=== PATIENT | female | born 1965 | race Caucasian/White ===

== ENCOUNTER → 2017-05-14 | Outpatient (CLI) | payer OTHER ==
--- NOTE | 2017-05-15 12:31 | XR ---
EXAMINATION TYPE: XR thoracic spine complete DATE OF EXAM: 05/14/2017 COMPARISON: NONE HISTORY: Back pain TECHNIQUE: 3 views FINDINGS: There is a midthoracic dextroscoliosis. This measures 20 degrees and is centered at T9. The re is no paraspinal mass. There is hypertrophic spurring of the endplates. I see no compression fract ure. IMPRESSION: Dextroscoliosis. No fracture. Mild spondylotic changes.
--- NOTE | 2017-05-15 12:33 | XR ---
EXAMINATION TYPE: XR lumbosacral spine min 4V DATE OF EXAM: 05/14/2017 COMPARISON: 11/23/2011 HISTORY: Chronic pain TECHNIQUE: 5 views FINDINGS: There is a mild mid lumbar levoscoliosis. Posterior elements are intact. I see no compressi on fracture. There is mild anterior spurring at L2-3. Sacroiliac joints appear normal. IMPRESSION: Minimal levoscoliosis without change compared to old exam. No fracture. No significant di sc space narrowing.
== END | disposition home or self-care (01) ==
LOC: RADXRYALE 11:09
PROVIDERS: ATTEND Family Medicine
DX: M47.814 Spondylosis without myelopathy or radiculopathy, thoracic region (principal); M41.84 Other forms of scoliosis, thoracic region; M41.87 Other forms of scoliosis, lumbosacral region; M54.5 Low back pain
CPT/HCPCS: 72072; 72110

== ENCOUNTER → 2018-02-23 | Outpatient (CLI) | payer OTHER ==
--- NOTE | 2018-02-25 08:22 | MM ---
Reason for exam: screening (asymptomatic). Last mammogram was performed 5 years and 2 months ago. History: Retro-pectoral saline implants in both breasts, 2014. Took hormonal contraceptives for 9 years beginning at age 16. Physical Findings: A clinical breast exam by your physician is recommended on an annual basis and results should be correlated with mammographic findings. MG 3D Screen Mammo Imp/Cad Bilateral CC and MLO view(s) were taken. Prior study comparison: January 03, 2013, bilateral digital screening mammo w/CAD. August 20, 2009, bilateral digital screening mammogram. The breast tissue is heterogeneously dense. This may lower the sensitivity of mammography. No suspicious abnormality. No significant changes when compared with prior studies. ASSESSMENT: Negative, BI-RAD 1 RECOMMENDATION: Routine screening mammogram of both breasts in 1 year.
== END | disposition home or self-care (01) ==
LOC: RADMAMWWP 10:18
PROVIDERS: ATTEND Family Medicine
DX: Z12.31 Encounter for screening mammogram for malignant neoplasm of breast (principal)
CPT/HCPCS: 77063; 77067

== ENCOUNTER → 2018-10-06 | Outpatient (CLI) | payer OTHER ==
--- NOTE | 2018-10-06 15:39 | US ---
EXAMINATION TYPE: US pelvis complete transvag DATE OF EXAM: 10/06/2018 COMPARISON: NONE CLINICAL HISTORY: R102 PELVIC AND PERINEAL PAIN,R1030 LOW ABD PAIN. TECHNIQUE: . Transabdominal sonographic images of the pelvis were acquired. Transvaginal sonographi c images were medically necessary to better assess the following anatomy: Date of LMP: ablation, EXAM MEASUREMENTS: Uterus: 6.3 x 2.4 x 3.6 cm Endometrial Stripe: 0.1 cm Right Ovary: 1.6 x 1.2 x 1.3 cm Left Ovary: 2.0 x 1.4 x 1.5 cm 1. Uterus: small nabothian cyst 0.6 largest cyst, posterior fundal probable fibroid 1.3 x 0.9 x1.9 cm 2. Endometrium: ablation, wnl 3. Right Ovary: wnl 4. Left Ovary: wnl 5. Bilateral Adnexa: wnl 6. Posterior cul-de-sac: wnl Anteverted uterus is present. Tiny nabothian cysts in cervix are seen. Suspect small fundal fibroid a s there is vague isoechoic 1.9 cm lesion in the uterus identified best during transvaginal investigat ion. IMPRESSION: Ablation changes. Nabothian cysts in cervix. Possible small intrauterine fibroids.
== END | disposition home or self-care (01) ==
LOC: RADUSWWP 14:51
PROVIDERS: ATTEND Family Medicine
DX: N88.8 Other specified noninflammatory disorders of cervix uteri (principal)
CPT/HCPCS: 76830; 76856

== ENCOUNTER → 2019-11-15 | Outpatient (CLI) | payer OTHER ==
--- NOTE | 2019-11-15 11:46 | CONS ---
CONSULTATION DATE OF SERVICE: 11/15/2019 This 54-year-old lady has been evaluated in sleep center for loud snoring and multiple awakenings from sleep and restless leg symptoms. HISTORY OF PRESENT ILLNESS/SLEEP-WAKE EVALUATION: Patient's usual sleep schedule from around 8 p.m. until 4 a.m. she does have problems with falling asleep, although no TV in bedroom. She usually sleeps on the side position by herself and according to the family, she has loud snoring and she wakes up from sleep multiple times, around 4 times with up to 3 episodes of nocturia at night. She has symptoms of restless legs while falling asleep and she is taking ropinirole to prevent this. In the morning, she wakes up tired, has difficulties to pay attention, falling asleep during the day, worry about her sleep. [place] Sleepiness Scale significantly increased to 11. She usually does not take any naps. She has problems with memory, concentration, irritability, episodes of depression, anxiety, claustrophobia, and sexual dysfunction. PAST MEDICAL HISTORY: Positive for back problems, recent bronchitis, carpal tunnel syndrome, bloody discharges from the uterus in the past. PAST SURGICAL HISTORY: Surgery for carpal tunnel syndrome, neck surgery for herniated disc, uterus ablation for the bleeding. MEDICATIONS: Ropinirole, Z-[place] presently, ibuprofen. SOCIAL HISTORY: Positive for smoking for more than 4 years. Patient tried to stop smoking several times, presently quit smoking about 4 weeks ago. Alcohol consumption occasional. FAMILY HISTORY: Arthritis, emphysema, pancreatic cancer and esophageal cancer, anemia, mental illness. REVIEW OF SYSTEMS: Snoring, multiple awakenings during the sleep, sleepiness during the day, episodes of back pain. PHYSICAL EXAMINATION: During physical exam, lady without distress. VITAL SIGNS: BP 127/85, HR 72, RR 15, height 5 feet 3 inches, weight 143.4, body mass index 25.3, temperature 97.7, oxygen saturation on room air 100% HEENT: PERRLA, EOMI. Oropharynx practically normal position of soft palate. Mallampati 2. Restriction of nasal breathing. Nose slightly asymmetric. NECK: Thirteen inches in circumference. LUNGS: Clear to percussion and to auscultation. Good air exchange. No wheezing or rhonchi. HEART: S1, S2 regular. No murmurs, gallops, or rubs. ABDOMEN: Soft and nontender. Bowel sounds are present. No organomegaly appreciated. EXTREMITIES: No clubbing or cyanosis. DATABASE CONSULTANT: Awake, alert, and oriented X3. Cranial nerves 2 to 7 intact. There is no fasciculation or atrophy. noted. No focal deficits observed. IMPRESSION: 1. Loud snoring, multiple awakenings from sleep with nocturia, restriction of nasal breathing, excessive daytime sleepiness. [place] Sleepiness Scale is 11. Possible obstructive sleep apnea-hypopnea syndrome. 2. History of restless legs syndrome. 3. Possibly periodic limb movements. 4. History of recent bronchitis. 5. History of smoking for about 40 pack years, quit around 4 weeks ago. 6. Status post neck surgery for herniated disc. 7. Status post uterus ablation for the bleeding in the past. 8. Status post carpal tunnel syndrome bilaterally. 9. Tubal ligation in 1992. PLAN: 1. Polysomnography for evaluation of patient's breathing during sleep and also to check for possible periodic limb movements during the sleep. 2. CPAP/BiPAP titration if sleep study confirms obstructive sleep apnea-hypopnea syndrome. 3. Preferable position during sleep on the side. 4. No driving if patient feels any sleepiness. 5. I will see patient for follow up visit to explain results of testing and following plan. 6. Please check iron profile and ferritin level. Low level of iron may increase risk for restless leg syndrome. Thank you very much for referring this patient for consultation. Sincerely, Robert Sloan MD, PhD, FAASM Diplomat of [place] [employer] [place] [employer] Apprentice [employer] [facility] [place] MMODL / IJN: [id number] /
== END | disposition home or self-care (01) ==
LOC: SLEEP 10:24
PROVIDERS: ATTEND Internal Medicine
DX: R06.83 Snoring (principal); R35.1 Nocturia; F41.9 Anxiety disorder, unspecified; F32.9 Major depressive disorder, single episode, unspecified; F40.240 Claustrophobia; G25.81 Restless legs syndrome; N94.9 Unspecified condition associated with female genital organs and menstrual cycle; Z87.891 Personal history of nicotine dependence; Z87.09 Personal history of other diseases of the respiratory system; Z87.39 Personal history of other diseases of the musculoskeletal system and connective tissue; Z98.51 Tubal ligation status; Z98.890 Other specified postprocedural states; Z79.1 Long term (current) use of non-steroidal anti-inflammatories (NSAID); Z79.899 Other long term (current) drug therapy
CPT/HCPCS: 99211

== ENCOUNTER → 2021-01-29 | Outpatient (CLI) | payer OTHER ==
--- NOTE | 2021-01-29 11:54 | XR ---
EXAMINATION TYPE: XR chest 2V DATE OF EXAM: 01/29/2021 COMPARISON: 09/10/2014 TECHNIQUE: PA and lateral views submitted. HISTORY: Shortness of breath FINDINGS: The lungs are clear and there is no pneumothorax, pleural effusion, or focal pneumonia. Surgical cl ips in the right axilla and there is a scoliosis of the vertebral column. Postsurgical change overlyi ng the cervical spine. Heart size normal. No overt failure. Hypertrophic and degenerative change of t he spine. IMPRESSION: 1. No acute process.
== END | disposition home or self-care (01) ==
LOC: RADXRYALE 11:41
PROVIDERS: ATTEND Physician Assistant Medical
DX: R06.02 Shortness of breath (principal)
CPT/HCPCS: 71046

== ENCOUNTER 2021-02-09 20:24 | Emergency (ER) | payer OTHER ==
[2021-02-09] MEDS ORDERED: LORazepam 2 MG/ML INJ IV STA (21:07)
[2021-02-09] MEDS ORDERED: ONDANSETRON 4 MG/2 ML VIAL IVP STA (21:07)
[2021-02-09] MEDS ORDERED: SODIUM CHLORIDE 0.9% 1,000 ML IV ONE (21:07)
--- NOTE | 2021-02-09 21:10 | ED ---
Overdose HPI - General Chief Complaint: Overdose Stated Complaint: Overdose Time Seen by Provider: 02/09/21 20:47 Source: patient Mode of arrival: ambulatory Limitations: no limitations - History of Present Illness Initial Comments: This patient is a 55-year-old woman who presents to be evaluated because she is not feeling well at all. The patient states she had smoked marijuana earlier and that she started panicking, noted that her heart was racing, is having intense nausea and vomiting, and feeling old. There is no chest pain. No dyspnea. There is no pain. Patient denies coingestants. MD Complaint: accidental overdose -: hour(s) Context: Accidental Overdose: wanted to get high Associated Symptoms: nausea/vomiting Treatments Prior to Arrival: none - Related Data Previous Rx's Medication Instructions Recorded HYDROcodone/APAP 7.5-325MG [[place] 1 - 2 each PO Q6HR PRN #90 tab 09/20/14 7.5-325] Ondansetron Odt [Zofran ODT] 4 mg PO Q8HR PRN #10 tab 02/09/21 Allergies Allergy/AdvReac Type Severity Reaction Status Date / Time No Known Allergies Allergy Verified 09/19/14 10:02 Review of Systems ROS Statement: Those systems with pertinent positive or pertinent negative responses have been documented in the HPI. ROS Other: All systems not noted in ROS Statement are negative. Constitutional: Denies: fever, chills Eyes: Denies: vision change Respiratory: Denies: cough, dyspnea Cardiovascular: Reports: palpitations. Denies: chest pain, orthopnea, edema, syncope Gastrointestinal: Reports: nausea, vomiting. Denies: abdominal pain, diarrhea, hematemesis, melena, hematochezia Genitourinary: Denies: dysuria, hematuria Musculoskeletal: Denies: back pain Skin: Denies: rash Neurological: Denies: headache, weakness, numbness Psychiatric: Reports: anxiety Past Medical History Past Medical History: Unable to Obtain History of Any Multi-Drug Resistant Organisms: None Reported Past Surgical History: Unable to Obtain Smoking Status: Current some day smoker Past Alcohol Use History: Occasional Past Drug Use History: Marijuana General Exam Limitations: no limitations General appearance: alert, in no apparent distress, anxious Head exam: Present: atraumatic, normocephalic Eye exam: Present: normal appearance ENT exam: Present: normal oropharynx Neck exam: Present: normal inspection Respiratory exam: Present: normal lung sounds bilaterally. Absent: respiratory distress, wheezes, rales, rhonchi, stridor Cardiovascular Exam: Present: normal rhythm, tachycardia, normal heart sounds. Absent: systolic murmur, diastolic murmur, rubs, gallop GI/Abdominal exam: Present: soft. Absent: distended, tenderness, guarding, rebound, rigid, mass Extremities exam: Present: normal inspection, normal capillary refill. Absent: pedal edema, calf tenderness Back exam: Present: normal inspection. Absent: CVA tenderness (R), CVA tenderness (L) Neurological exam: Present: alert Psychiatric exam: Present: anxious Skin exam: Present: warm, dry, intact, normal color. Absent: rash Course Vital Signs 02/09/21 20:40 Temperature 98.0 F Pulse Rate 132 H Respiratory 16 Rate Blood Pressure 144/88 O2 Sat by Pulse 97 Oximetry Medical Decision Making - EKG Data -: EKG Interpreted by Ms EKG shows normal: sinus rhythm, axis (Normal), intervals (Normal), QRS complexes (Normal) Rate: normal (Rate 95 bpm) Interpretation: nonspecific ST-T wave changes Disposition Clinical Impression: Cannabis abuse, Tachycardia, Nausea & vomiting Disposition: HOME SELF-CARE Condition: Good Instructions (If sedation given, give patient instructions): Acute Nausea and Vomiting (ED), Cannabis Abuse (ED) Prescriptions: Ondansetron Odt [Zofran ODT] 4 mg PO Q8HR PRN #10 tab PRN Reason: Nausea Is patient prescribed a controlled substance at d/c from ED?: No Referrals: Derian Jiménez DO [Primary Care Provider] - 1-2 days
[2021-02-09 21:46] LABS: Basophils % (A) 0 %; Eosinophils # (A) 0.2 k/uL (0-0.7); Eosinophils % (A) 2 %; HCT 38.5 % (34.0-46.0); HGB 12.3 gm/dL (11.4-16.0); Lymphocytes # (A) 1.4 k/uL (1.0-4.8); Lymphocytes % (A) 21 %; MCH 27.2 pg (25.0-35.0); MCV 85.2 fL (80.0-100.0); Monocytes # (A) 0.2 k/uL (0-1.0); Monocytes % (A) 4 %; Neutrophils # (A) 4.8 k/uL (1.3-7.7); Neutrophils % (A) 72 %; Platelet Count 272 k/uL (150-450); RBC 4.52 m/uL (3.80-5.40); WBC 6.6 k/uL (3.8-10.6)
[2021-02-09 21:55] LABS: Calcium 9.1 mg/dL (8.4-10.2)
[2021-02-09 23:23] VITALS: BP 123/88; PULSE 110; RESP 18; TEMP 97.8
== END 2021-02-09 23:24 | disposition home or self-care (01) ==
LOC: EC 20:24
DX: F12.10 Cannabis abuse, uncomplicated (principal); R00.0 Tachycardia, unspecified; R11.2 Nausea with vomiting, unspecified; F17.200 Nicotine dependence, unspecified, uncomplicated
CPT/HCPCS: 36415; 93005; 80048; 85025; 99284; 96374; 96375; 96361 ×2; J2060; J2405

== ENCOUNTER → 2023-04-30 | Outpatient (CLI) | payer OTHER ==
--- NOTE | 2023-04-30 20:02 | XR ---
EXAMINATION TYPE: XR abdomen 2V DATE OF EXAM: 04/30/2023 5:09 PM INDICATION: Patient age:Female; 57 years old; Reason for study: R1084 GEN ABD PAIN; COMPARISON: None TECHNIQUE: Two views of the abdomen were obtained. FINDINGS: The bowel gas pattern is nonspecific without dilated loops of small or large bowel. There i s no evidence for organomegaly or pneumoperitoneum. The osseous structures are intact. Scoliosis neetu nges of the spine. Multilevel disc degeneration of the spine. No abnormal calcifications are present. Fecal material and gas are demonstrated throughout the colon and rectum. IMPRESSION: Nonspecific bowel gas pattern without radiographic evidence for acute process.
== END | disposition home or self-care (01) ==
LOC: RADXRYALE 16:30
PROVIDERS: ATTEND Physician Assistant Medical
DX: R10.84 Generalized abdominal pain (principal)
CPT/HCPCS: 74019